=== PATIENT | male | born 1950 | race Caucasian/White ===

== ENCOUNTER 2018-09-14 09:27 | Emergency (ER) | payer SELFPAY ==
[~2018-09-14] VITALS: Ht 167.6 cm; Wt 81.8 kg
[2018-09-14 09:33] VITALS: Ht 167.6 cm; Wt 81.8 kg
[2018-09-14 10:24] VITALS: BP 131/75
== END 2018-09-14 10:24 | disposition home or self-care (01) ==
LOC: ED 09:27
DX: H60.91 Unspecified otitis externa, right ear (principal)